=== PATIENT | female | born 1945 | race Caucasian/White ===

== ENCOUNTER → 2016-10-28 | Outpatient (CLI) | payer MEDICARE ==
--- NOTE | 2016-10-28 10:34 | MM ---
Reason for exam: clinical finding. Last mammogram was performed 1 year and 7 months ago. History: Patient is postmenopausal. Benign cyst aspiration of the left breast. Took estrogen for 24 years 2 months. Indicated problem(s): lump or thickening in the left breast. Physical Findings: Nurse did not find any significant physical abnormalities on exam. MG 3D Diag Mammo W/Cad NATASHA Bilateral CC and MLO view(s) were taken. ML, XCCL, and spot compression MLO view(s) were taken of the left breast. Prior study comparison: March 15, 2015, bilateral MG screening mammo w CAD. There are scattered fibroglandular densities. Finding: There is an increased suspicious, equal architectural distortion located 14 cm from the nipple in the upper outer quadrant, posterior position. There is a chronic nodularity in the left breast. Questionable skin thickening lower outer quadrant at nipple. Consider possibility of early paget's disease. New finding since March 15, 2015. These results were verbally communicated with the patient and result sheet given to the patient on 10/28/16. ASSESSMENT: Probably benign, BI-RAD 3 RECOMMENDATION: Surgical consultation of the left breast. Manage on a clinical basis with regard to nipple itch, consider paget's disease. (left nipple itch/questionable thickening) Called Dr. Soares with mammographic findings and has scheduled an appointment for the patient for 11/28/16 at 10:[address] Doss. PRELIMINARY REPORT CALLED AND FAXED TO DR. DOSS ON 10/28/16 /TP. Follow-up diagnostic mammogram of the left breast in 6 months.
== END | disposition home or self-care (01) ==
LOC: RADMAMWWP 08:54
PROVIDERS: ATTEND Obstetrics & Gynecology
DX: N63 Unspecified lump in breast (principal)
CPT/HCPCS: G0204; G0279

== ENCOUNTER → 2017-11-03 | Outpatient (CLI) | payer MEDICARE ==
--- NOTE | 2017-11-03 14:42 | BD ---
EXAMINATION TYPE: Axial Bone Density DATE OF EXAM: 11/03/2017 COMPARISON: NONE CLINICAL HISTORY: screening Height: 5'2 1/2 Weight: 185 FRAX RISK QUESTIONS: History of Fracture in Adulthood: y Secondary Osteoporosis: 3. Menopause before 45: y RISK FACTORS HISTORY OF: History of Wrist Fracture: left When: 2013 Postmenopausal woman: y MEDICATIONS: Additional Medications: Radha d, type 2 diabetes, blood pressure, cholesterol, anxiety Additional History: EXAM MEASUREMENTS: Bone mineral densitometry was performed using the [employer] System. Bone mineral density as measured about the Lumbar spine is: ----- L1-L4(G/cm2): 1.160 T Score Values are as flows: ----- L2: -1.2 ----- L3: -0.2 ----- L4: 0.6 ----- L1-L4: -0.2 Bone mineral density about the R hip (g/cm2): 0.839 Bone mineral density about the L hip (g/cm2): 0.820 T Score values are as follows: -----R Neck: -1.4 -----L Neck: -1.6 -----R Total: -0.5 -----L Total: 0.1 IMPRESSION: No evidence for osteoporosis or osteopenia. NOTE: T-SCORE=SD OF THE YOUNG ADULT MEAN.
--- NOTE | 2017-11-05 09:30 | MM ---
Reason for exam: screening (asymptomatic). Last mammogram was performed 1 year ago. History: Patient is postmenopausal. Benign cyst aspiration of the left breast. Took estrogen for 24 years 2 months. Physical Findings: A clinical breast exam by your physician is recommended on an annual basis and results should be correlated with mammographic findings. MG 3D Screening Mammo W/Cad Bilateral CC and MLO view(s) were taken. Technologist: RT Miller (R)(M) Prior study comparison: October 28, 2016, bilateral MG 3d diag mammo w/cad NATASHA. March 15, 2015, bilateral MG screening mammo w CAD. There are scattered fibroglandular densities. Finding: There is an intermediate concern, suspicious 7 mm high density, spiculated irregular mass located 12 cm from the nipple in the upper quadrant, posterior position of the left breast on MLO view. There is a chronic nodularity in the left breast. New finding since October 28, 2016 and March 15, 2015. ASSESSMENT: Incomplete: need additional imaging evaluation, BI-RAD 0 RECOMMENDATION: Special view mammogram and ultrasound of the left breast. [facility] will attempt to contact patient to return for supplemental views and ultrasound.
== END | disposition home or self-care (01) ==
LOC: RADMAMWWP 09:07
PROVIDERS: ATTEND Family Medicine
DX: Z12.31 Encounter for screening mammogram for malignant neoplasm of breast (principal); Z13.820 Encounter for screening for osteoporosis
CPT/HCPCS: 77063; 77067; 77080

== ENCOUNTER → 2017-11-06 | Outpatient (CLI) | payer MEDICARE ==
--- NOTE | 2017-11-06 13:26 | MM ---
Reason for exam: additional evaluation requested from abnormal screening. Last mammogram was performed less than 1 month ago. History: Patient is postmenopausal. Benign cyst aspiration of the left breast. Took estrogen for 24 years 2 months. Physical Findings: Nurse did not find any significant physical abnormalities on exam. MG 3D Work Up W/Cad LT Spot compression CC, spot compression MLO, and ML view(s) were taken of the left breast. Prior study comparison: November 03, 2017, bilateral MG 3d screening mammo w/cad. October 28, 2016, bilateral MG 3d diag mammo w/cad NATASHA. Focal asymmetry upper outer left breast persists. Ultrasound is recommended. These results were verbally communicated with the patient and result sheet given to the patient on 11/06/17. ASSESSMENT: Incomplete: need additional imaging evaluation, BI-RAD 0 RECOMMENDATION: Ultrasound of the left breast.
--- NOTE | 2017-11-06 13:33 | USB ---
Reason for exam: additional evaluation requested from abnormal screening. History: Patient is postmenopausal. Benign cyst aspiration of the left breast. Took estrogen for 24 years 2 months. US Breast Workup Limited LT Left limited breast ultrasound including focal area of concern, retroareolar and axilla demonstrates a 0.5 x 0.4 x 0.5cm lesion too small to characterize at 1-2 o'clock for which a biopsy is recommended, a 1.0 x 0.4 x 1.0cm solid lesion at 12 o'clock and a axilla node. These results were verbally communicated with the patient and result sheet given to the patient on 11/06/17. ASSESSMENT: Suspicious, BI-RAD 4 RECOMMENDATION: Stereotactic core biopsy of the left breast. Called Dr. Barrera with mammographic findings and has scheduled an appointment for the patient for 12/17/17 at 3:[address] Doss. Biopsy scheduled for 11/13/17 at 8:00. PRELIMINARY REPORT CALLED AND FAXED TO DR. DOSS ON 11/06/17.
== END | disposition home or self-care (01) ==
LOC: RADMAMWWP 07:51
PROVIDERS: ATTEND Family Medicine
DX: R92.8 Other abnormal and inconclusive findings on diagnostic imaging of breast (principal)
CPT/HCPCS: 77065; 76642; G0279; 77061

== ENCOUNTER → 2017-11-13 | Day surgery (SDC) | payer MEDICARE ==
[2017-11-13 07:16] VITALS: RESP 16; BMI 34.0
[2017-11-13 09:28] VITALS: BP 139/81; PULSE 78; TEMP 98.2
--- NOTE | 2017-11-13 16:40 | MM ---
EXAMINATION TYPE: MG stereo VAD BX LT DATE OF EXAM: 11/13/2017 COMPARISON: Mammogram 11/06/2017 CLINICAL HISTORY: Abnormal mammogram TECHNIQUE: Stereotactic guided core biopsy of left breast. FINDINGS: The procedure of stereotactic guided core biopsy was explained to the patient. Benefits, alternatives, and risks were discussed. An informed consent was then obtained. Timeout was performed. Skin was prepped and draped in the usual manner. The skin was anesthetized with 1% lidocaine with sodium bicarbonate. Deeper breast tissue was anesthetized. Utilizing a lateral approach the mammographic density was targeted by radiology. The procedure was performed by radiology. Clip was placed at biopsy site. The patient tolerated the procedure very well. Postprocedure mammogram is obtained. Clip is in the location of the localized left breast density. Discharge instructions were discussed with the patient. Patient will follow-up with her physician for results. Patient was released in stable condition having tolerated procedure very well. IMPRESSION: 1. Successful stereotactic core biopsy left breast mammographic density. Recommendations: 1. Recommendations are pending pathology results. Pathology Results: Benign CORE BIOPSY, LEFT BREAST: Stromal hyalinization with focal fat necrosis, negative for malignancy. Microcalcifications are present. Recommendation Follow up mammogram of the left breast in 6 months. MELIZA
== END ==
LOC: RADMAMWWP 06:57
PROVIDERS: ATTEND Surgery
DX: N64.1 Fat necrosis of breast (principal); R92.0 Mammographic microcalcification found on diagnostic imaging of breast; Z88.1 Allergy status to other antibiotic agents; Z88.0 Allergy status to penicillin
CPT/HCPCS: 88305; 19081; A4648; J2001

== ENCOUNTER → 2018-06-08 | Outpatient (CLI) | payer MEDICARE ==
--- NOTE | 2018-06-09 07:13 | MM ---
Reason for exam: follow-up at short interval from prior study. Last mammogram was performed 7 months ago. History: Patient is postmenopausal. Benign MG stereo VAD BX LT of the left breast, November 13, 2017. Benign cyst aspiration of the left breast. Took estrogen for 24 years 2 months. Physical Findings: Nurse did not find any significant physical abnormalities on exam. MG 3D Diag Mammo W/Cad LT CC and MLO view(s) were taken of the left breast. Prior study comparison: November 06, 2017, left breast MG 3d work up w/cad LT. November 03, 2017, bilateral MG 3d screening mammo w/cad. There are scattered fibroglandular densities. Previous mammotome biopsy in the left breast. There is chronic nodularity in the left breast. Asymmetric breast tissue left upper aspect. There is no discrete abnormality. These results were verbally communicated with the patient and result sheet given to the patient on 06/08/18. ASSESSMENT: Benign, BI-RAD 2 RECOMMENDATION: Return to routine screening mammogram schedule for both breasts. Back on schedule for October 2018.
== END | disposition home or self-care (01) ==
LOC: RADMAMWWP 13:58
PROVIDERS: ATTEND Surgery
DX: R92.8 Other abnormal and inconclusive findings on diagnostic imaging of breast (principal)
CPT/HCPCS: 77065; G0279; 77061

== ENCOUNTER → 2018-09-03 | Outpatient (CLI) | payer MEDICARE ==
--- NOTE | 2018-09-03 17:28 | XR ---
EXAMINATION TYPE: XR chest 2V DATE OF EXAM: 09/03/2018 COMPARISON: Prior chest x-ray 04/13/2017 HISTORY: Cough TECHNIQUE: Frontal and lateral views of the chest are obtained. FINDINGS: There is no focal air space opacity, pleural effusion, or pneumothorax seen. The cardiac silhouette size is within normal limits. Prominent lung volume may be indicative of underlying COPD. The osseous structures are intact. IMPRESSION: No acute cardiopulmonary process.
== END | disposition home or self-care (01) ==
LOC: RADXRMAIN 15:27
PROVIDERS: ATTEND Family Medicine
DX: R05 Cough (principal)
CPT/HCPCS: 71046

== ENCOUNTER → 2019-05-14 | Outpatient (CLI) | payer MEDICARE ==
--- NOTE | 2019-05-14 08:23 | US ---
EXAMINATION TYPE: US abdomen complete DATE OF EXAM: 05/14/2019 COMPARISON: NONE CLINICAL HISTORY: R10.31 Rt lower quadrant pain. epigastric pain and rlq pain EXAM MEASUREMENTS: Liver Length: 15.0 cm Gallbladder Wall: 0.2 cm CBD: 0.6 cm Spleen: 9.7 cm Right Kidney: 11.1 x 5.0 x 4.8 cm Left Kidney: 10.4 x 4.4 x 5.3 cm *difficult to penetrate due to habitus and bowel gas Pancreas: portions seen appear wnl Liver: There is increased echogenicity of the hepatic parenchyma with diminished visualization of th e portal triads most commonly relating to hepatic steatosis and limiting evaluation for underlying he patic masses. Gallbladder: wnl Evidence for sonographic Bonner's sign: no CBD: wnl Spleen: wnl Right Kidney: wnl Left Kidney: wnl Upper IVC: wnl Abd Aorta: wnl The intrahepatic portion of the IVC and proximal abdominal aorta are within normal limits. There is no evidence of cholelithiasis. Common bile duct is unremarkable. The visualized portions of the conroy creas are homogenous. The spleen is unremarkable. Kidneys are symmetric and free of hydronephrosis. No renal lesions are seen. IMPRESSION: Sonographic findings most commonly related to hepatic steatosis. Correlate with liver fun ction tests.
== END | disposition home or self-care (01) ==
LOC: RADUSWWP 07:40
PROVIDERS: ATTEND Family Medicine
DX: R10.31 Right lower quadrant pain (principal)
CPT/HCPCS: 76700

== ENCOUNTER → 2019-08-25 | Outpatient (CLI) | payer MEDICARE ==
--- NOTE | 2019-08-26 11:12 | MM ---
Reason for exam: screening (asymptomatic). Last mammogram was performed 1 year and 3 months ago. History: Patient is postmenopausal. Benign MG stereo VAD BX LT of the left breast, November 13, 2017. Benign cyst aspiration of the left breast. Took estrogen for 24 years 2 months. Physical Findings: A clinical breast exam by your physician is recommended on an annual basis and results should be correlated with mammographic findings. MG 3D Screening Mammo W/Cad Bilateral CC and MLO view(s) were taken. Prior study comparison: June 08, 2018, left breast MG 3d diag mammo w/cad LT. November 06, 2017, left breast MG 3d work up w/cad LT. Previous mammotome biopsy in the left breast. There is chronic nodularity in the left breast. Asymmetric breast tissue right anterior aspect. There is no discrete abnormality. Skin lesion right breast stable. ASSESSMENT: Benign, BI-RAD 2 RECOMMENDATION: Routine screening mammogram of both breasts in 1 year.
== END | disposition home or self-care (01) ==
LOC: RADMAMWWP 08:09
PROVIDERS: ATTEND Family Medicine
DX: Z12.31 Encounter for screening mammogram for malignant neoplasm of breast (principal)
CPT/HCPCS: 77063; 77067

== ENCOUNTER → 2020-10-02 | Outpatient (CLI) | payer MEDICARE ==
--- NOTE | 2020-10-05 15:27 | MM ---
Reason for exam: screening (asymptomatic). Last mammogram was performed 1 year and 1 month ago. History: Patient is postmenopausal. Benign MG stereo VAD BX LT of the left breast, November 13, 2017. Benign cyst aspiration of the left breast. Taking estrogen for 24 years 2 months. Physical Findings: A clinical breast exam by your physician is recommended on an annual basis and results should be correlated with mammographic findings. MG 3D Screening Mammo W/Cad Bilateral CC and MLO view(s) were taken. Prior study comparison: August 25, 2019, bilateral MG 3d screening mammo w/cad. June 08, 2018, left breast MG 3d diag mammo w/cad LT. There are scattered fibroglandular densities. There is chronic nodularity bilaterally. No significant changes when compared with prior studies. ASSESSMENT: Benign, BI-RAD 2 RECOMMENDATION: Routine screening mammogram of both breasts in 1 year.
== END | disposition home or self-care (01) ==
LOC: RADMAMWWP 14:33
PROVIDERS: ATTEND Family Medicine
DX: Z12.31 Encounter for screening mammogram for malignant neoplasm of breast (principal); Z78.0 Asymptomatic menopausal state
CPT/HCPCS: 77063; 77067

== ENCOUNTER → 2022-02-22 | Outpatient (CLI) | payer MEDICARE ==
--- NOTE | 2022-02-25 13:04 | MM ---
Reason for Exam: Screening (asymptomatic). Last mammogram was performed 1 year(s) and 5 month(s) ago. Patient History: Menarche at age 14. First Full-Term at age 22. Hysterectomy at age 35. Postmenopausal. Estrogen for 24 years, 2 months. Benign Cyst Aspiration on the left side. 11/13/2017, Benign Core Biopsy on the left side. Risk Values: Estrella 5 year model risk: 1.7%. NCI Lifetime model risk: 3.0%. Prior Study Comparison: 06/08/2018 Left Diagnostic Mammogram, [facility]. 08/25/2019 Bilateral Screening Mammogram, [facility]. 10/02/2020 Bilateral Screening Mammogram, [facility]. Tissue Density: There are scattered fibroglandular densities. Findings: Analyzed By CAD. Pattern appears symmetrical and stable. Table nodularities within the left breast. No significant interval changes are evident. No suspicious groups of microcalcifications, spiculated or lobular masses, architectural distortion or other secondary signs of malignancy are mammographically apparent. Overall Assessment: Benign, BI-RAD 2 Management: Screening Mammogram of both breasts in 1 year. A negative mammogram report should not preclude additional follow up of suspicious palpable abnormalities. Patient should continue monthly self breast exam. A clinical breast exam by your physician is recommended on an annual basis and results should be correlated with mammographic findings. Electronically signed and approved by: Steven Cui D.O. Radiologis
== END | disposition home or self-care (01) ==
LOC: RADMAMWWP 14:36
PROVIDERS: ATTEND Pediatrics
DX: Z12.31 Encounter for screening mammogram for malignant neoplasm of breast (principal); Z78.0 Asymptomatic menopausal state
CPT/HCPCS: 77063; 77067

== ENCOUNTER 2022-08-15 14:24 | Emergency (ER) | payer MEDICARE ==
[2022-08-15] MEDS ORDERED: ACET/COD 300 MG/30 MG STARTER PACK 6 TAB BTL PO STA (15:48)
[2022-08-15] MEDS ORDERED: DEXAMETHASONE SOD PHOSPHATE 10 MG/ML 1 ML VIAL IM STA (15:48)
[2022-08-15] MEDS ORDERED: IBUPROFEN 600 MG STARTER PACK 4 TAB BTL PO STA (15:48)
[2022-08-15] MEDS ORDERED: ETODOLAC 400 MG TAB PO STA (15:48)
[2022-08-15] MEDS ORDERED: Acetaminophen-Codeine 300-30mg TAB PO STA (15:48)
--- NOTE | 2022-08-15 15:49 | ED ---
Lower Extremity Injury HPI - General Chief Complaint: Extremity Injury, Lower Stated Complaint: Left arm injury Time Seen by Provider: 08/15/22 15:13 Source: patient, RN notes reviewed, old records reviewed Mode of arrival: ambulatory Limitations: no limitations - History of Present Illness Initial Comments: This is a 68-year-old female to the emergency department for evaluation of pain left wrist pain left elbow pain left forearm pain and swelling. Patient states she has history of fracture and surgery in that wrist. No new trauma. Patient states symptoms began after doing some grocery carrying last night and worse when she woke up this morning. No significant trauma fevers redness rash or other complaint noted MD Complaint: other (Left wrist left forearm pain) -: hour(s) Type of Injury: inversion, eversion, hyperextension, hyperflexion Place: home Severity: moderate Severity scale (1-10): 6 Improves With: nothing Worsens With: nothing Context: fall Other Symptoms: loss of consciousness Associated Symptoms: swelling, numbness, tingling Treatments Prior to Arrival: NSAIDS - Related Data Home Medications Medication Instructions Recorded Confirmed Omeprazole 20 mg PO BID 06/06/15 08/15/22 Simvastatin [Zocor] 20 mg PO HS 06/06/15 08/15/22 Albuterol Inhaler [Ventolin Hfa 1 - 2 puff INHALATION RT-Q6H PRN 04/13/17 08/15/22 Inhaler] glipiZIDE XL [Glucotrol Xl] 10 mg PO BID 04/13/17 08/15/22 Escitalopram [Lexapro] 20 mg PO DAILY 08/15/22 08/15/22 Losartan Potassium [Cozaar] 100 mg PO DAILY 08/15/22 08/15/22 hydroCHLOROthiazide [Hydrodiuril] 12.5 mg PO DAILY 08/15/22 08/15/22 metFORMIN HCL ER [Glucophage XR] 500 mg PO BID 08/15/22 08/15/22 Allergies Allergy/AdvReac Type Severity Reaction Status Date / Time clindamycin Allergy Unknown Verified 08/15/22 15:35 Penicillins AdvReac Rash/Hives Verified 08/15/22 15:35 Review of Systems ROS Statement: Those systems with pertinent positive or pertinent negative responses have been documented in the HPI. ROS Other: All systems not noted in ROS Statement are negative. Past Medical History Past Medical History: Asthma, GERD/Reflux, Hyperlipidemia, Hypertension History of Any Multi-Drug Resistant Organisms: None Reported Past Surgical History: Ear Surgery, Hysterectomy, Tonsillectomy Additional Past Surgical History / Comment(s): left ear surgery (stapendectomy (??) 1980) Past Anesthesia/Blood Transfusion Reactions: No Reported Reaction Additional Past Anesthesia/Blood Transfusion Reaction / Comment(s): No blood transfusion to date. Patient states her "father always needed extra medication because it was hard for him to go under" Past Psychological History: Anxiety Smoking Status: Never smoker Past Alcohol Use History: None Reported Past Drug Use History: None Reported - Past Family History Brother(s) Family Medical History: Cancer Additional Family Medical History / Comment(s): primary lung cancer, mets led to at age 52 Father Family Medical History: Coronary Artery Disease (CAD) Additional Family Medical History / Comment(s): at age 74, had 2 CABG procedures prior to General Exam Limitations: no limitations General appearance: alert, in no apparent distress Head exam: Present: atraumatic, normocephalic, normal inspection Eye exam: Present: normal appearance, PERRL, EOMI. Absent: scleral icterus, conjunctival injection, periorbital swelling ENT exam: Present: normal exam, mucous membranes moist Neck exam: Present: normal inspection. Absent: tenderness, meningismus, lymphadenopathy Respiratory exam: Present: normal lung sounds bilaterally. Absent: respiratory distress, wheezes, rales, rhonchi, stridor Cardiovascular Exam: Present: regular rate, normal rhythm, normal heart sounds. Absent: systolic murmur, diastolic murmur, rubs, gallop, clicks GI/Abdominal exam: Present: soft, normal bowel sounds. Absent: distended, tenderness, guarding, rebound, rigid Extremities exam: Present: normal inspection, full ROM, normal capillary refill. Absent: tenderness, pedal edema, joint swelling, calf tenderness Back exam: Present: normal inspection Neurological exam: Present: alert, oriented X3, CN II-XII intact Psychiatric exam: Present: normal affect, normal mood Skin exam: Present: warm, dry, intact, normal color. Absent: rash Course Vital Signs 08/15/22 14:35 Temperature 98.1 F Pulse Rate 88 Respiratory 20 Rate Blood Pressure 134/76 O2 Sat by Pulse 99 Oximetry - Reevaluation(s) Reevaluation #1: 08/15/22 15:54 Medical records reviewed Reevaluation #2: 08/15/22 15:54 Symptoms are improved here in the ER Reevaluation #3: 08/15/22 15:54 Patient informed results questions answered Reevaluation #4: 08/15/22 16:21 Was pt. sent in by a medical professional or institution? @ -no Did you speak to anyone other than the patient for history? @ -no Did you review nursing and triage notes? @ -agree Were old charts reviewed? @ -no Differential Diagnosis? @ -prior EKG interpreted by me (3pts min.)? @ -no X-rays interpreted by me (1pt min.)? @ -no CT interpreted by me (1pt min.)? @ -no U/S interpreted by me (1pt. min.)? @ -no What testing was considered but not performed? (CT, X-rays, U/S, labs)? Why? @ -no What meds were considered but not given? Why? @ -no Did you discuss the management of the patient with other professionals? @ -no Did you reconcile home meds? @ -no Was smoking cessation discussed for >3mins.? @ -no Was critical care preformed (if so, how long)? @ -no Were there social determinants of health that impacted care today? How? (Homelessness, low income, unemployed, alcoholism, drug addiction, transportation, low edu. Level, literacy, decrease access to med. care, custodial, rehab)? @ -no Was there de-escalation of care discussed even if they declined? (Discuss DNR or withdrawal of care, Hospice)? @ -no What co-morbidities impacted this encounter? (DM, HTN, Smoking, COPD, CAD, Cancer, CVA, Hep., AIDS, mental health diagnosis, sleep apnea, morbid obesity)? @ -none Was patient admitted / discharged? @ -68 female DF for evaluation of left wrist pain left forearm pain ulnar nerve entrapment given anti-inflammatories and pain control can be discharged home Discharged Undiagnosed new problem with uncertain prognosis? @ -no Drug Therapy requiring intensive monitoring for toxicity (Heparin, Nitro, Insulin, Cardizem)? @ -no Were any procedures done? @ -no Diagnosis/symptom? @ -Left wrist ulnar entrapment ulnar nerve pain neurology to Acute, or Chronic, or Acute on Chronic? @ -no Uncomplicated (without systemic symptoms) or Complicated (systemic symptoms)? @ -uncomplicated Side effects of treatment? @ -no Exacerbation, Progression, or Severe Exacerbation] @ -no Poses a threat to life or bodily function? @ -yes Medical Decision Making - Medical Decision Making 76 female to the emergency department for evaluation. Patient coming in for left forearm pain and swelling. Patient does have positive no sign at the left elbow, possible compression fevers mild entrapment and inflammation. 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
[2022-08-15 17:00] VITALS: BP 119/73; PULSE 80; RESP 16; TEMP 98
== END 2022-08-15 17:00 | disposition home or self-care (01) ==
LOC: EC 14:24
DX: G56.22 Lesion of ulnar nerve, left upper limb (principal); M65.4 Radial styloid tenosynovitis [de Quervain]; E78.5 Hyperlipidemia, unspecified; F41.9 Anxiety disorder, unspecified; I10 Essential (primary) hypertension; K21.9 Gastro-esophageal reflux disease without esophagitis; Z79.84 Long term (current) use of oral hypoglycemic drugs; Z79.899 Other long term (current) drug therapy; Z88.0 Allergy status to penicillin
CPT/HCPCS: 99283; 96372; J1100

== ENCOUNTER → 2023-04-15 | Outpatient (CLI) | payer MEDICARE ==
--- NOTE | 2023-04-16 14:00 | MM ---
Reason for Exam: Screening (asymptomatic). Last mammogram was performed 1 year(s) and 2 month(s) ago. Patient History: Menarche at age 14. First Full-Term at age 22. Hysterectomy at age 35. Postmenopausal. Estrogen for 24 years, 2 months. Benign Cyst Aspiration on the left side. 11/13/2017, Benign Core Biopsy on the left side. Risk Values: Estrella 5 year model risk: 1.6%. NCI Lifetime model risk: 2.7%. Prior Study Comparison: 10/28/2016 Bilateral Diagnostic Mammogram, [facility]. 11/03/2017 Bilateral Screening Mammogram, [facility]. 11/06/2017 Left Diagnostic Mammogram, [facility]. 06/08/2018 Left Diagnostic Mammogram, [facility]. 08/25/2019 Bilateral Screening Mammogram, [facility]. 10/02/2020 Bilateral Screening Mammogram, [facility]. 02/22/2022 Bilateral MG 3D screening mammo w/cad, [facility]. Tissue Density: The breast tissue is almost entirely fat. Findings: Analyzed By CAD. There is no suspicious group of microcalcifications or new suspicious mass. Overall Assessment: Negative, BI-RAD 1 Management: Screening Mammogram of both breasts in [address] [facility] will attempt to contact patient to return for supplemental views and ultrasound if indicated. Patient should continue monthly self-breast exams. A clinical breast exam by your physician is recommended on an annual basis. This exam should not preclude additional follow-up of suspicious palpable abnormalities. Note on Estrella scores and lifetime risk: 1. A Estrella score greater than 3% is considered moderate risk. If this is the case, consider specialist referral to assess eligibility for a risk reducing agent. 2. If overall lifetime risk for the development of breast cancer is 20% or higher, the patient may qualify for future screening with alternating mammogram and breast MRI. Electronically signed and approved by: Duane Oliver DO
== END | disposition home or self-care (01) ==
LOC: RADMAMWWP 10:42
PROVIDERS: ATTEND Pediatrics
DX: Z12.31 Encounter for screening mammogram for malignant neoplasm of breast (principal); Z78.0 Asymptomatic menopausal state
CPT/HCPCS: 77063; 77067